=== PATIENT | female | born 1995 | race Caucasian/White ===

== ENCOUNTER 2017-05-07 12:04 | Emergency (ER) | payer SELFPAY ==
[~2017-05-07] VITALS: Ht 160 cm; Wt 80.0 kg
[~2017-05-07 12:04] MED LIST: Z.0.NO CURRENT MEDS; ZITH250T PO
[2017-05-07 12:06] VITALS: BP 118/62; PULSE 107; RESP 16; TEMP 98.2; O2SAT 97
--- NOTE | 2017-05-07 12:28 | PD ---
HPI Chief Complaint: Abdominal Pain Time Seen by Provider: 12:13 Travel History International Travel<30 days: No Contact w/Intl Traveler<30days: No Traveled to known affect area: No History of Present Illness HPI This 21-year-old female is complaining of vomiting. She says that last night she ate some meat. soon afterwards she started vomiting and vomited several times area today she has been nauseated. She says there is no chance of and she is also had some discomfort in the right eye. Sunday night she says it felt like something popped in the medial aspect of the eye. There is been some drainage from the right eye. Vision has not been affected. She did have some redness which has improved considerably PFSH Past Medical History Hx Anticoagulant Therapy: No Bipolar Disorder: Yes (BORDERLINE, REQUIRES NO MEDS) Depression: Yes Diabetes: No Diminished Hearing: No Reproductive: Yes (OVARIAN CYST) Immunizations Current: Yes ?: Not Ovarian Cysts: Yes (JUNE 2009) Social History Alcohol Use: Yes Tobacco Use: Yes Substance Use: No Allergies-Medications (Allergen,Severity, Reaction): Coded Allergies: No Known Allergies (Verified Adverse Reaction, Unknown, 05/07/17) Reported Meds & Prescriptions Reported Meds & Active Scripts Active No Active Prescriptions or Reported Medications Review of Systems General / Constitutional: No: Fever, Chills Eyes: Positive: Drainage HENT: No: Headaches, Vertigo Cardiovascular: No: Chest Pain or Discomfort, Palpitations Respiratory: No: Cough, Shortness of Breath Gastrointestinal: Positive: Nausea, Vomiting, Abdominal Pain, No: Diarrhea Genitourinary: No: Urgency, Frequency Physical Exam Narrative GENERAL: Well-developed female SKIN: Focused skin assessment warm/dry. HEAD: Atraumatic. Normocephalic. EYES: Pupils equal and round. No scleral icterus. There is some bilateral conjunctival injection. It is greater on the right. ENT: No nasal bleeding or discharge. Mucous membranes pink and moist. NECK: Trachea midline. No JVD. CARDIOVASCULAR: Regular rate and rhythm. No murmur appreciated. RESPIRATORY: No accessory muscle use. Clear to auscultation. Breath sounds equal bilaterally. GASTROINTESTINAL: Abdomen soft, non-tender, nondistended. Hepatic and splenic margins not palpable. MUSCULOSKELETAL: No obvious deformities. No clubbing. No cyanosis. No edema. NEUROLOGICAL: Awake and alert. No obvious cranial nerve deficits. Motor grossly within normal limits. Normal speech. PSYCHIATRIC: Appropriate mood and affect; insight and judgment normal. Data Data Last Documented VS Vital Signs Date Time Temp Pulse Resp B/P (MAP) Pulse Ox O2 Delivery O2 Flow Rate FiO2 05/07/17 12:06 98.2 107 16 118/62 (80) 97 Orders Orders Complete Blood Count With Diff (05/07/17 12:19) Comprehensive Metabolic Panel (05/07/17 12:19) Sodium Chlor 0.9% 1000 Ml Inj (Ns 1000 M (05/07/17 12:30) Ondansetron Inj (Zofran Inj) (05/07/17 12:30) Ondansetron Odt (Zofran Odt) (05/07/17 13:30) Labs Laboratory Tests Test 05/07/17 12:35 White Blood Count 7.1 TH/MM3 Red Blood Count 4.60 MIL/MM3 Hemoglobin 13.0 GM/DL Hematocrit 39.3 % Mean Corpuscular Volume 85.4 FL Mean Corpuscular Hemoglobin 28.4 PG Mean Corpuscular Hemoglobin Concent 33.2 % Red Cell Distribution Width 13.9 % Platelet Count 271 TH/MM3 Mean Platelet Volume 7.6 FL Neutrophils (%) (Auto) 76.0 % Lymphocytes (%) (Auto) 17.1 % Monocytes (%) (Auto) 5.5 % Eosinophils (%) (Auto) 1.1 % Basophils (%) (Auto) 0.3 % Neutrophils # (Auto) 5.4 TH/MM3 Lymphocytes # (Auto) 1.2 TH/MM3 Monocytes # (Auto) 0.4 TH/MM3 Eosinophils # (Auto) 0.1 TH/MM3 Basophils # (Auto) 0.0 TH/MM3 CBC Comment DIFF FINAL Differential Comment Blood Urea Nitrogen 14 MG/DL Creatinine 0.72 MG/DL Random Glucose 96 MG/DL Total Protein 7.5 GM/DL Albumin 3.7 GM/DL Calcium Level 8.4 MG/DL Alkaline Phosphatase 49 U/L Aspartate Amino Transf (AST/SGOT) 19 U/L Alanine Aminotransferase (ALT/SGPT) 33 U/L Total Bilirubin 0.7 MG/DL Sodium Level 137 MEQ/L Potassium Level 3.3 MEQ/L Chloride Level 103 MEQ/L Carbon Dioxide Level 26.8 MEQ/L Anion Gap 7 MEQ/L Estimat Glomerular Filtration Rate 102 ML/MIN MDM Medical Decision Making Medical Screen Exam Complete: Yes Emergency Medical Condition: Yes Medical Record Reviewed: Yes Differential Diagnosis Differential includes gastroenteritis, vomiting, food poisoning, conjunctivitis Narrative Course Patient has been given some IV fluids and Zofran. Her lab work shows a potassium which is slightly low. Impression is acute gastritis, food poisoning. She has some mild conjunctivitis and will also be given Sulfatrim Diagnosis Primary Impression: Acute gastritis Qualified Codes: K29.00 - Acute gastritis without bleeding Additional Impression: Conjunctivitis Qualified Codes: H10.33 - Unspecified acute conjunctivitis, bilateral Scripts Sulfacetamide Opth Drops (Bleph-10 Opth Drops) 10 % Soln 1 DROP EACH EYE Q2H for Infection for 7 Days, #1 BOTTLE 0 Refills Prov: Greg Granados MD 05/07/17 Ondansetron Odt (Zofran Odt) 4 Mg Tab 4 MG SL Q6HR Y for Nausea/Vomiting, #6 TAB 0 Refills Prov: Greg Granados MD 05/07/17 Disposition: 01 DISCHARGE HOME Condition: Stable Greg Granados MD May 07, 2017 12:28
[2017-05-07] MEDS ORDERED: ONDANSETRON HCL 4 MG/2 ML VIAL IV PUSH ONE (12:30)
[2017-05-07] MEDS ORDERED: SODIUM CHLOR 0.9% 1000 ML INJ 1,000 ML IV ONE (12:30)
[2017-05-07 12:41] LABS: AUTOMATED NEUTROPHIL # 5.4 TH/MM3 (1.8-7.7); BASOPHIL % 0.3 % (0.0-2.0); EOSINOPHIL # 0.1 TH/MM3 (0-0.4); EOSINOPHIL % 1.1 % (0.0-4.0); HEMATOCRIT 39.3 % (35.0-46.0); HEMO FLAGS DIFF FINAL; LYMPH % 17.1 % (9.0-44.0); LYMPHOCYTE # 1.2 TH/MM3 (1.0-4.8); MEAN CELL VOLUME 85.4 FL (80.0-100.0); MEAN CORPUSCULAR HEMOGLOBIN 28.4 PG (27.0-34.0); MEAN CORPUSCULAR HGB CONC 33.2 % (32.0-36.0); MONO % 5.5 % (0.0-8.0); PLATELET COUNT 271 TH/MM3 (150-450); RED CELL DISTRIBUTION WIDTH 13.9 % (11.6-17.2); WHITE BLOOD COUNT 7.1 TH/MM3 (4.0-11.0)
[2017-05-07 12:51] LABS: CHLORIDE 103 MEQ/L (98-107); POTASSIUM 3.3 MEQ/L (3.5-5.1); SODIUM (NA) 137 MEQ/L (136-145)
[2017-05-07 12:55] LABS: ANION GAP 7 MEQ/L (5-15); BICARBONATE 26.8 MEQ/L (21.0-32.0); BLOOD UREA NITROGEN 14 MG/DL (7-18)
[2017-05-07 12:58] LABS: ALT (GPT) 33 U/L (10-53); AST (GOT) 19 U/L (15-37); GLOMERULAR FILTRATION RATE 102 ML/MIN (>89)
[2017-05-07 12:59] LABS: TOTAL BILIRUBIN ADULT 0.7 MG/DL (0.2-1.0)
[2017-05-07 13:01] LABS: ALKALINE PHOSPHATASE 49 U/L (45-117)
[2017-05-07] MEDS ORDERED: ONDANSETRON ODT 4 MG TAB PO ONE (13:30)
[2017-05-07] MEDS ORDERED: SULF1SOL4 EACH EYE (13:30)
[2017-05-07] MEDS ORDERED: ZOFR4TAB3 SL (13:30)
== END 2017-05-07 13:52 | disposition home or self-care (01) ==
LOC: PHED 12:04
DX: K29.00 Acute gastritis without bleeding (principal)
CPT/HCPCS: 80053; 85025; 96361; 96374; 99284; J2405; J7030

== ENCOUNTER 2017-09-22 13:34 | Emergency (ER) | payer SELFPAY ==
[~2017-09-22] VITALS: Ht 162.6 cm; Wt 79.0 kg
[~2017-09-22 13:34] MED LIST changes: +SULF1SOL4 EACH EYE; -Z.0.NO CURRENT MEDS; -ZITH250T PO; +ZOFR4TAB3 SL
[2017-09-22 13:41] VITALS: BP 124/75; PULSE 139; RESP 16; TEMP 98.4; O2SAT 96
[2017-09-22 14:13] LABS: BLOOD, URINE NEG (NEG); GLUCOSE,URINE NEG (NEG); KETONE, URINE 80 OR GREATER mg/dL (NEG); NITRITE,URINE NEG (NEG); PH, URINE 5.5 (5.0-8.5); URINE COLOR YELLOW (YELLW/STRAW); URINE LEUKOCYTE ESTERASE NEG (NEG)
[2017-09-22 14:19] LABS: BILIRUBIN, URINE NEG (NEG)
[2017-09-22 14:20] LABS: RBC, URINE 0-3 /hpf (0-3)
[2017-09-22 14:21] LABS: BACTERIA, URINE MOD /hpf; SQUAMOUS EPITHELIAL CELL URINE > 8 /hpf (0-5)
[2017-09-22 15:52] VITALS: BP 121/81; PULSE 121; RESP 18; O2SAT 94
[2017-09-22] MEDS ORDERED: ONDANSETRON HCL 4 MG/2 ML VIAL ONE (16:06)
[2017-09-22] MEDS ORDERED: SODIUM CHLORIDE 0.9% FLUSH 10 ML FLUSH IV FLUSH PRN (16:15)
[2017-09-22 16:20] VITALS: RESP 18; O2SAT 96
[2017-09-22 16:28] LABS: EOSINOPHIL % 0.1 % (0.0-4.0); HEMATOCRIT 41.3 % (35.0-46.0); HEMOGLOBIN 13.6 GM/DL (11.6-15.3); LYMPH % 3.5 % (9.0-44.0); LYMPHOCYTE # 0.3 TH/MM3 (1.0-4.8); MEAN CELL VOLUME 84.4 FL (80.0-100.0); MEAN CORPUSCULAR HEMOGLOBIN 27.9 PG (27.0-34.0); MEAN PLATELET VOLUME 7.7 FL (7.0-11.0); MONOCYTE # 0.3 TH/MM3 (0-0.9); NEUT % 93.4 % (16.0-70.0); PLATELET COUNT 275 TH/MM3 (150-450); RED BLOOD COUNT 4.89 MIL/MM3 (4.00-5.30); RED CELL DISTRIBUTION WIDTH 13.8 % (11.6-17.2); WHITE BLOOD COUNT 9.6 TH/MM3 (4.0-11.0)
[2017-09-22] MEDS ORDERED: ONDANSETRON HCL 4 MG/2 ML VIAL IV PUSH ONE (16:30)
[2017-09-22] MEDS ORDERED: SODIUM CHLOR 0.9% 1000 ML INJ 1,000 ML IV ONE (16:30)
[2017-09-22 16:37] LABS: CHLORIDE 103 MEQ/L (98-107); SODIUM (NA) 136 MEQ/L (136-145)
[2017-09-22 16:41] LABS: CALCIUM 9.1 MG/DL (8.5-10.1)
[2017-09-22 16:42] LABS: BICARBONATE 25.2 MEQ/L (21.0-32.0); BLOOD UREA NITROGEN 14 MG/DL (7-18); GLUCOSE,RANDOM 102 MG/DL (74-106)
[2017-09-22 16:45] LABS: ALT (GPT) 29 U/L (10-53); AST (GOT) 20 U/L (15-37); CREATININE 0.81 MG/DL (0.50-1.00); GLOMERULAR FILTRATION RATE 89 ML/MIN (>89)
[2017-09-22 16:46] LABS: TOTAL BILIRUBIN ADULT 0.8 MG/DL (0.2-1.0); TOTAL PROTEIN 8.3 GM/DL (6.4-8.2)
[2017-09-22 16:48] LABS: ALKALINE PHOSPHATASE 54 U/L (45-117)
[2017-09-22] MEDS ORDERED: IOHEXOL 350 MG/ML 10 ML VIAL (for RAD DIAG) IVCONTRAST ONE (17:14)
[2017-09-22 17:22] VITALS: BP 117/66; PULSE 112; RESP 16; O2SAT 97
--- NOTE | 2017-09-22 17:51 | RADRPT ---
EXAM DATE/TIME: 09/22/2017 17:06 [facility] COMPARISON: No previous studies available for comparison. INDICATIONS : Abdominal pain with nausea, vomiting, and diarrhea. IV CONTRAST: 100 cc Omnipaque 350 (iohexol) IV ORAL CONTRAST: No oral contrast ingested. RADIATION DOSE: 11.75 CTDIvol (mGy) MEDICAL HISTORY : Ovarian cysts. SURGICAL HISTORY : None. ENCOUNTER: Initial ACUITY: 1 day PAIN SCALE: 7/10 LOCATION: abdomen TECHNIQUE: Volumetric scanning of the abdomen and pelvis was performed. Using automated exposure control and ad justment of the mA and/or kV according to patient size, radiation dose was kept as low as reasonably achievable to obtain optimal diagnostic quality images. DICOM format image data is available electro nically for review and comparison. FINDINGS: LOWER LUNGS: The visualized lower lungs are clear. LIVER: Homogeneous density without lesion. There is no dilation of the biliary tree. No calcified gallston es. SPLEEN: Normal size without lesion. PANCREAS: Within normal limits. KIDNEYS: Normal in size and shape. There is no mass, stone or hydronephrosis. ADRENAL GLANDS: Within normal limits. VASCULAR: There is no aortic aneurysm. BOWEL/MESENTERY: The stomach, small bowel, and colon demonstrate no acute abnormality. There is no free intraperitone al air or fluid. ABDOMINAL WALL: Within normal limits. RETROPERITONEUM: There is no lymphadenopathy. BLADDER: No wall thickening or mass. REPRODUCTIVE: Note is made of a 1.6 cm cyst within the right ovary. INGUINAL: There is no lymphadenopathy or hernia. MUSCULOSKELETAL: Within normal limits for patient age. CONCLUSION: 1. Incidental 1 cm cyst within the right ovary. 2. No free air or free fluid identified. No findings to indicate bowel obstruction are evident by CT. Tee Baker MD on September 22, 2017 at 17:44 Board Certified Radiologist. This report was verified electronically.
[2017-09-22 18:28] VITALS: BP 111/57; PULSE 118; RESP 18; O2SAT 98
--- NOTE | 2017-09-22 18:34 | PD ---
HPI Chief Complaint: GI Complaint Time Seen by Provider: 16:13 Travel History International Travel<30 days: No Contact w/Intl Traveler<30days: No Traveled to known affect area: No History of Present Illness HPI Patient presents with complaints of mild nausea vomiting and diarrhea since 4 AM this morning. Denies any recent antibiotics travel or exposure to strange foods. Denies any blood per emesis or stool. Denies . Diffuse vague abdominal pain. No aggravating or alleviating factors. Denies sick contacts with similar symptoms. History of ovarian cyst. PFSH Past Medical History Hx Anticoagulant Therapy: No Bipolar Disorder: Yes (BORDERLINE, REQUIRES NO MEDS) Depression: Yes Diabetes: No Diminished Hearing: No Reproductive: Yes (OVARIAN CYST) Immunizations Current: Yes Influenza Vaccination: No ?: Not LMP: 08/29/17 Ovarian Cysts: Yes (JUNE 2009) Social History Alcohol Use: Yes (OCCAS) Tobacco Use: No Substance Use: No Allergies-Medications (Allergen,Severity, Reaction): Coded Allergies: No Known Allergies (Verified Adverse Reaction, Unknown, 05/07/17) Reported Meds & Prescriptions Reported Meds & Active Scripts Active Review of Systems Gastrointestinal: Positive: Nausea, Vomiting, Diarrhea Physical Exam Narrative GENERAL: Well-nourished, well-developed patient. SKIN: Focused skin assessment warm/dry. HEAD: Normocephalic. EYES: No scleral icterus. No injection or drainage. NECK: Supple, trachea midline. No JVD or lymphadenopathy. CARDIOVASCULAR: Regular rate and rhythm without murmurs, gallops, or rubs. RESPIRATORY: Breath sounds equal bilaterally. No accessory muscle use. GASTROINTESTINAL: Abdomen soft, diffusely tender, nondistended. MUSCULOSKELETAL: No cyanosis, or edema. BACK: Nontender without obvious deformity. No CVA tenderness. Data Data Last Documented VS Vital Signs Date Time Temp Pulse Resp B/P (MAP) Pulse Ox O2 Delivery O2 Flow Rate FiO2 09/22/17 18:28 118 18 111/57 (75) 98 Room Air 09/22/17 13:41 98.4 Orders Orders Urinalysis - C+S If Indicated (09/22/17 13:57) Ed Urine Pregnancytest Poc (09/22/17 13:57) Urine Culture (09/22/17 13:53) Ondansetron Inj (Zofran Inj) (09/22/17 16:06) Complete Blood Count With Diff (09/22/17 16:13) Comprehensive Metabolic Panel (09/22/17 16:13) Lipase (09/22/17 16:13) Lactic Acid (09/22/17 16:13) Ct Abd/Pel W Iv Contrast(Rout) (09/22/17 16:13) Iv Access Insert/Monitor (09/22/17 16:13) Ecg Monitoring (09/22/17 16:13) Oximetry (09/22/17 16:13) Sodium Chloride 0.9% Flush (Ns Flush) (09/22/17 16:15) Ondansetron Inj (Zofran Inj) (09/22/17 16:30) Sodium Chlor 0.9% 1000 Ml Inj (Ns 1000 M (09/22/17 16:30) Iohexol 350 Inj (Omnipaque 350 Inj) (09/22/17 17:14) Labs Laboratory Tests Test 09/22/17 13:53 09/22/17 16:15 Urine Collection Type CLEAN CATCH Urine Color YELLOW Urine Turbidity CLEAR Urine pH 5.5 Urine Specific [place] GREATER/EQUAL 1.030 Urine Protein NEG mg/dL Urine Glucose (UA) NEG mg/dL Urine Ketones 80 OR GREATER mg/dL Urine Occult Blood NEG Urine Nitrite NEG Urine Bilirubin NEG Urine Urobilinogen 0.2 MG/DL Urine Leukocyte Esterase NEG Urine RBC 0-3 /hpf Urine WBC 6-8 /hpf Urine Squamous Epithelial Cells > 8 /hpf Urine Bacteria MOD /hpf Microscopic Urinalysis Comment CULTURE INDICATED Urine Collection Time 13:53 White Blood Count 9.6 TH/MM3 Red Blood Count 4.89 MIL/MM3 Hemoglobin 13.6 GM/DL Hematocrit 41.3 % Mean Corpuscular Volume 84.4 FL Mean Corpuscular Hemoglobin 27.9 PG Mean Corpuscular Hemoglobin Concent 33.0 % Red Cell Distribution Width 13.8 % Platelet Count 275 TH/MM3 Mean Platelet Volume 7.7 FL Neutrophils (%) (Auto) 93.4 % Lymphocytes (%) (Auto) 3.5 % Monocytes (%) (Auto) 3.0 % Eosinophils (%) (Auto) 0.1 % Basophils (%) (Auto) 0.0 % Neutrophils # (Auto) 9.0 TH/MM3 Lymphocytes # (Auto) 0.3 TH/MM3 Monocytes # (Auto) 0.3 TH/MM3 Eosinophils # (Auto) 0.0 TH/MM3 Basophils # (Auto) 0.0 TH/MM3 CBC Comment DIFF FINAL Differential Comment Blood Urea Nitrogen 14 MG/DL Creatinine 0.81 MG/DL Random Glucose 102 MG/DL Total Protein 8.3 GM/DL Albumin 4.0 GM/DL Calcium Level 9.1 MG/DL Alkaline Phosphatase 54 U/L Aspartate Amino Transf (AST/SGOT) 20 U/L Alanine Aminotransferase (ALT/SGPT) 29 U/L Total Bilirubin 0.8 MG/DL Sodium Level 136 MEQ/L Potassium Level 3.5 MEQ/L Chloride Level 103 MEQ/L Carbon Dioxide Level 25.2 MEQ/L Anion Gap 8 MEQ/L Estimat Glomerular Filtration Rate 89 ML/MIN Lactic Acid Level 1.0 mmol/L Lipase 87 U/L [facility] Medical Decision Making Medical Screen Exam Complete: Yes Emergency Medical Condition: Yes Differential Diagnosis Gastroenteritis, small bowel obstruction, ovarian cyst, ischemic bowel Narrative Course Assessment plan discussed the patient and mother at bedside. Patient received fluids and Zofran with improvement of symptoms. Tolerating fluids. Last 72 hours Impressions Abdomen/Pelvis CT 09/22/17 1613 Signed Impressions: Service Date/Time: Friday, September 22, 2017 17:06 - CONCLUSION: 1. Incidental 1 cm cyst within the right ovary. 2. No free air or free fluid identified. No findings to indicate bowel obstruction are evident by CT. Tee Baker MD Diagnosis Primary Impression: Gastroenteritis Patient Instructions: General Instructions Additional Instructions: Rest fluids and Motrin, encouraged a bland high-fiber brat diet. Antiemetic and antispasmodic as needed. Follow-up with PCP. Return to the emergency room with any onset of new symptoms. Med/Other Pt SpecificInfo: Prescription(s) given Scripts Ondansetron (Zofran) 4 Mg Tab 4 MG PO Q6HR Y for NAUSEA OR VOMITING, #20 TAB 0 Refills Prov: Bc Harrison MD 09/22/17 Hyoscyamine (Levsin) 0.125 Mg Tab 0.125 MG PO Q4H for Gastrointestinal disorders, #20 TAB 0 Refills Prov: Bc Harrison MD 09/22/17 Bc Harrison MD Sep 22, 2017 18:34
[2017-09-22] MEDS ORDERED: ZOFR4TAB PO (18:36)
[2017-09-22] MEDS ORDERED: LEVS0.123 PO (18:36)
== END 2017-09-22 18:55 | disposition home or self-care (01) ==
LOC: PHED 13:34
DX: K52.9 Noninfective gastroenteritis and colitis, unspecified (principal); N83.201 Unspecified ovarian cyst, right side; R82.99 Other abnormal findings in urine; F31.9 Bipolar disorder, unspecified
CPT/HCPCS: 74177; 80053; 81001; 83605; 83690; 84703; 85025; 87086; 96361; 96374; 99285; J7030; Q9967; J2405